=== PATIENT | male | born 1965 | race Caucasian/White ===

== ENCOUNTER 2016-12-19 19:00 | Emergency (ER) | payer BC, MEDICARE ==
[2016-12-19 19:13] VITALS: BP 112/79
[2016-12-19] MEDS ORDERED: HYDROmorphone 1 MG/ML Syringe IVPUSH ONE (19:22)
[2016-12-19] MEDS ORDERED: HYDROmorphone 1 MG/ML Syringe IM ONE (19:27)
[2016-12-19] MEDS ORDERED: Diazepam 5 MG Tab PO ONE (20:26)
[2016-12-19] MEDS ORDERED: Take Home: Acetaminophen/HYDROcodone 325-10 MG, 5 Tab Pack PO ONE (20:51)
--- NOTE | 2016-12-21 08:42 | ER ---
Date of Service: 12/19/2016 SUBJECTIVE: Adalberto presents to the emergency room with complaints of lumbar pain. The patient states that he fell out of the back of a truck and since that time has been experiencing discomfort to his lumbar spine. The patient has a history of degenerative disk disease and does undergo an epidural steroid injection for this. He states he does have chronic radiculopathy into the right lower extremity. He states that the radiculopathy is unchanged. He states that he is not experiencing any saddle anesthesia or urinary or fecal incontinence. PAST MEDICAL HISTORY: 1. Degenerative disk disease. 2. Spinal stenosis. 3. Anxiety. 4. Depression. 5. Dyslipidemia. MEDICATIONS: 1. Potassium chloride. 2. Aspirin. 3. Hydrochlorothiazide. 4. Prozac. 5. Alprazolam. 6. Protonix. 7. Zoloft. 8. Aleve. 9. Melatonin. 10.Tizanidine. 11.Lipitor. ALLERGIES: NKDA. REVIEW OF SYSTEMS: Denies any numbness or tingling in the distal portion of his lower extremities. No difficulties with urinary or fecal incontinence. Denies any fever or chills. Again, this is an acute injury. Denies any paresthesia to his lower extremities. PHYSICAL EXAMINATION: General: This is a 51-year-old male patient, who is in no acute distress. Vital Signs: Blood pressure is 112/79, pulse rate is 96, temperature is 36.6, respiratory rate 18, and O2 saturations 97%. Skin: Warm, pink, and dry. HEENT: Head is normocephalic, atraumatic. Eyes, PERRLA. Extraocular muscles are intact. Back: He does have some erythema to his upper lumbar spine. There is no obvious step-offs or deformity noted. Lungs: Clear to auscultation. Heart: Regular rate and rhythm. IMAGING: CT scan of the patient's lumbar spine was obtained. There is evidence of L1, L2, and L3 left transverse process fractures. No obvious central canal stenosis or other vertebral body injury. ASSESSMENT: Transverse process fracture of L1, 2, and 3. PLAN: The patient will be discharged. I did start him on [place] 10/325 with instructions to take 1 every 4 to 6 hours as needed for pain. I will have the patient followup in the clinic in the next 7 to 10 days. I did speak with Neurosurgery regarding this injury. The patient was given a prescription for an [place] back brace. Return to the emergency room if he develops any as paresthesia to his extremities, difficulties with walking, etc. All questions were answered. MWK: 12/21/2016 05:23:43 MODL: 12/21/2016 06:11:04 /[id number]
== END 2016-12-19 20:30 | disposition home or self-care (01) ==
LOC: VM.ED 19:00 → SUPCPDRO 19:00 → VM.ED 20:30
DX: S32.019A Unspecified fracture of first lumbar vertebra, initial encounter for closed fracture (principal); S32.029A Unspecified fracture of second lumbar vertebra, initial encounter for closed fracture; S32.039A Unspecified fracture of third lumbar vertebra, initial encounter for closed fracture; F41.9 Anxiety disorder, unspecified; F32.9 Major depressive disorder, single episode, unspecified; W19.XXXA Unspecified fall, initial encounter
CPT/HCPCS: 72131; 96372; 99284; A9270; J1170

== ENCOUNTER 2018-04-16 00:29 | Emergency (ER) | payer BC, MEDICARE ==
[2018-04-16 00:33] VITALS: BP 147/102
[2018-04-16] MEDS ORDERED: Take Home: Cephalexin 500 MG Cap, 4 Cap Pack PO ONE (01:18)
--- NOTE | 2018-04-16 01:57 | EDM.PDOC ---
ED HPI GENERAL MEDICAL PROBLEM - General Chief Complaint: Upper Extremity Injury/Pain Stated Complaint: post op shoulder redness Time Seen by Provider: 04/16/18 00:30 Source of Information: Reports: Patient, Family History Limitations: Reports: No Limitations - History of Present Illness INITIAL COMMENTS - FREE TEXT/NARRATIVE: Pt. presents to ER with increased swelling and erythema to R shoulder. He states that he had surgery on the shoulder approx. 1 week ago. Pt. states that he felt the was a change in the area this evening. She states that there was an area of localized edema to the anterior shoulder. Denies any fever or chills. Denies any new trauma to the area. He is participating in PT postoperatively, but states that it is not strenuous activity. Right Shoulder Pain Score (Numeric/FACES): 2 - Related Data Allergies Allergy/AdvReac Type Severity Reaction Status Date / Time No Known Allergies Allergy Verified 04/16/18 00:33 Home Meds: Home Meds ALPRAZolam [Xanax XR] 3 mg PO BEDTIME 12/25/13 [History] ALPRAZolam [Xanax] 0.25 mg PO Q12H PRN 12/25/13 [History] Naproxen Sodium [Aleve] 440 mg PO BID 12/25/13 [History] Pantoprazole Sodium [Protonix] 40 mg PO BID PRN 12/25/13 [History] atorvaSTATin [Lipitor] 20 mg PO BEDTIME 12/25/13 [History] hydroCHLOROthiazide [Hydrochlorothiazide] 1.5 tab PO DAILY 12/25/13 [History] Ondansetron [Zofran ODT] 4 mg PO Q6H PRN #6 tab.dis 03/01/14 [Rx] Potassium Chloride 20 meq PO BID 03/01/14 [History] Melatonin 25 mg PO BEDTIME 08/24/16 [History] Aspirin [Ecotrin] 81 mg PO DAILY 12/19/16 [History] Nortriptyline 40 mg PO BEDTIME 30 Days #60 cap 08/25/17 [Rx] FLUoxetine HCl [Fluoxetine HCl] 40 mg PO BEDTIME 30 Days #30 capsule 10/27/17 [ Rx] tiZANidine [Zanaflex] 8 mg PO Q8H PRN 30 Days #180 tab 01/11/18 [Rx] Past Medical History Cardiovascular History: Reports: Hypertension, [place] Genitourinary History: Reports: Other (See Below) Other Genitourinary History: History of several episodes of kidney stones. Musculoskeletal History: Reports: Back Pain, Chronic Neurological History: Reports: CVA, Seizure Psychiatric History: Reports: Anxiety, Depression - Past Surgical History Head Surgeries/Procedures: Reports: None Musculoskeletal Surgical History: Reports: Shoulder Surgery Social & Family History - Tobacco Use Smoking Status *Q: Never Smoker - Caffeine Use Caffeine Use: Reports: None Review of Systems - Review of Systems Review Of Systems: See Below Constitutional: Reports: No Symptoms Respiratory: Reports: No Symptoms Cardiovascular: Reports: No Symptoms GI/Abdominal: Reports: No Symptoms Musculoskeletal: Reports: Other (see hpi) Skin: Reports: No Symptoms ED EXAM, GENERAL - Physical Exam Exam: See Below Exam Limited By: No Limitations General Appearance: Alert, WD/WN, No Apparent Distress Neck: Normal Inspection, Supple, Non-Tender, Full Range of Motion Respiratory/Chest: No Respiratory Distress, Lungs Clear, Normal Breath Sounds, No Accessory Muscle Use, Chest Non-Tender Cardiovascular: Normal Peripheral Pulses, Regular Rate, Rhythm, No Edema, No Gallop, No JVD, No Murmur, No Rub Extremities: Normal Inspection, Normal Range of Motion, Non-Tender, Normal Capillary Refill, Other (The swelling and erythema apperently has decreased since coming to ER. He still complains of some diffuse superfical burning to the R shoulder. No discharge from the post op lacerations.) Course - Vital Signs Last Recorded V/S: Last Vital Signs Temp 36.8 C 04/16/18 00:30 Pulse 109 H 04/16/18 00:30 Resp 18 04/16/18 00:30 BP 147/102 H 04/16/18 00:30 Pulse Ox - Orders/Labs/Meds Meds: Medications Discontinued Medications Generic Name Dose Route Start Last Admin Trade Name Freq PRN Reason Stop Dose Admin Cephalexin 1 packet 04/16/18 01:18 04/16/18 01:22 Take Home: Cephalexin 500 Mg, 4 Cap Pack PO 04/16/18 01:19 1 packet ONETIME ONE Administration Departure - Departure Time of Disposition: 01:15 Disposition: Home, Self-Care 01 Condition: Good Clinical Impression: Post op infection - Discharge Information Instructions: Cellulitis, Adult Referrals: PCP,Unobtain [Primary Care Provider] - Forms: ED Department Discharge Additional Instructions: Keflex 500mg 4 times daily for 10 days Follow-up with surgeon as planned Return to ER if increased discomfort, fever, chills, or weakness. - Assessment/Plan Plan: Keflex 500mg 4 times daily for 10 days Follow-up with surgeon as planned Return to ER if increased discomfort, fever, chills, or weakness.
== END 2018-04-16 01:28 | disposition home or self-care (01) ==
LOC: VM.ED 00:29
DX: T81.4XXA Infection following a procedure, initial encounter (principal); I10 Essential (primary) hypertension; I25.2 Old myocardial infarction; Z79.899 Other long term (current) drug therapy
CPT/HCPCS: 99283; A9270

== ENCOUNTER 2018-06-14 08:36 | Day surgery (SDC) | payer BC, MEDICARE ==
[~2018-06-14 08:36] MED LIST: Lactated Ringers 1,000 ML IV SCH; Sodium Chloride 0.9% 10 ML Syringe FLUSH PRN
[2018-06-14] MEDS ORDERED: Bupivacaine 0.25%/EPINEPHrine 1:200,000 30 ML SDV ONE (10:28)
[2018-06-14] MEDS ORDERED: Acetaminophen 1,000 MG in Premix Bag 1 BAG IV ONE (10:41)
[2018-06-14] MEDS ORDERED: Midazolam 1 MG/ML 2 ML SDV ONE (11:34)
[2018-06-14] MEDS ORDERED: Propofol 200 MG/20 ML SDV ONE ×2 (11:34→11:50)
[2018-06-14] MEDS ORDERED: fentaNYL 100 MCG/2 ML SDV ONE (11:34)
[2018-06-14] MEDS ORDERED: Ondansetron 4 MG/2 ML SDV ONE (11:38)
[2018-06-14] MEDS ORDERED: Ketorolac 30 MG/ML SDV ONE (11:43)
[2018-06-14] MEDS ORDERED: Bupivacaine 0.25%/EPINEPHrine 1:200,000 30 ML SDV INFILT ONE ×2 (11:56)
[2018-06-14 13:00] VITALS: BP 127/67
--- NOTE | 2018-06-14 18:09 | OR ---
PREOPERATIVE DIAGNOSIS: External hemorrhoids, symptomatic. POSTOPERATIVE DIAGNOSIS: External hemorrhoids, symptomatic. PROCEDURE PROPOSED: Excision of external hemorrhoids x2. PROCEDURE DONE: Excision of external hemorrhoids x2. INDICATION: A 52-year-old gentleman who has some bothersome firm external hemorrhoids. They appeared to be almost more of a polypoid type lesion, 1 anterior and 1 posterior, and after he was seen in the office a few weeks ago, I felt that we should proceed to remove these in the operating room under sedation. TECHNIQUE: The patient was brought to the operative suite, given some MAC anesthesia per SAFETY RELIEF VALVE TECHNICIAN with propofol, and placed in the lithotomy position. The anal area was then sterilely prepped and draped. He had 2 external polypoid lesions, 1 posteriorly which was the largest measuring about 1.5 cm and one anteriorly measured about a 1 cm. Each area was locally anesthetized with 0.25% Marcaine with epinephrine. The largest polyp posteriorly was grasped with an Allis clamp and trimmed off with scissors. Hemostasis was obtained with cautery, and then the actual incision was closed with a running 3-0 chromic. Attention was then drawn to the anterior polyp which was removed in a similar fashion by grasping it and excising it with scissors, and it was then closed in a similar fashion with a running 2-0 chromic after obtaining hemostasis in the depths of the wound. Digital exam revealed good anal opening and sphincter tone, and the procedure was then terminated. The specimens were submitted for pathology. SCM: 06/14/2018 12:18:36 MODL: 06/14/2018 18:03:16 /[id number]
--- NOTE | 2018-06-21 09:40 | LETTER ---
06/21/2018 Marichuy Arvizu RE: MARICHUY HARO : 1965 Dear Mr. Arvizu: The anal tags removed recently by surgery came back showing that they were just non-worrisome anal tags with inflammation. I am pleased to give you this good report. If you have any further questions, feel free to call. Respectfully,
== END 2018-06-14 13:30 | disposition home or self-care (01) ==
LOC: VM.SDS 08:36
PROVIDERS: ATTEND Surgery
DX: K64.4 Residual hemorrhoidal skin tags (principal); I10 Essential (primary) hypertension; G47.33 Obstructive sleep apnea (adult) (pediatric); E78.00 Pure hypercholesterolemia, unspecified; F33.1 Major depressive disorder, recurrent, moderate; Z79.82 Long term (current) use of aspirin; Z79.899 Other long term (current) drug therapy
CPT/HCPCS: 88304; J0131; J1885; J2250; J2405; J2704; J3010; J7120

== ENCOUNTER 2020-07-07 15:20 | Emergency (ER) | payer BC, MEDICARE ==
[2020-07-07 16:04] LABS: CHLORIDE,CL 101 mmol/L (98-107); SODIUM,NA 138 mmol/L (136-145)
[2020-07-07 16:06] LABS: PTT,PARTIAL THROMBOPLSTIN TIME 25.4 SEC (25.6-32.8)
--- NOTE | 2020-07-07 16:13 | CT ---
[id number] CT/CT Head Stroke Protocol Exam: CT Head Stroke Protocol Clinical Data: STROKE COMPARISON: NO PREVIOUS SIMILAR EXAM IS AVAILABLE FINDINGS: There is no mass or mass effect There is no hemorrhage or hydrocephalus There are no extra axial fluid collections The aspect score is 10 There are no sites of abnormal attenuation There is no definite hyperdense middle cerebral artery sign The right middle cerebral artery appears denser than the left The patient is not symmetrically positioned The patient is presenting with expressive aphasia and a right side headache IMPRESSION: NO DEFINITE PLAIN CT ABNORMALITY CT ANGIOGRAPHY TO FOLLOW REPORT CALLED AT TIME OF EXAM Jeremi Khan MD 07/07/20 [id number] Thank you for allowing us to participate in the care of your patient.
[2020-07-07] MEDS: Iopamidol 612 MG/ML 100 ML Bottle IVPUSH ONE (16:20)
[2020-07-07] MEDS: diphenhydrAMINE 50 MG/ML SDV IVPUSH ONE (16:53)
[2020-07-07] MEDS: Lactated Ringers 1,000 ML IV ONE (16:53)
--- NOTE | 2020-07-07 16:54 | CT ---
[id number] CT/CTA Head Neck Exam: CTA Head Neck Clinical Data: NEUROLOGIC DEFICIT COMPARISON: CORRELATION IS MADE WITH THE EARLIER PLAIN CT BRAIN FINDINGS: No large vessel occlusion is seen There is no appreciable cervical carotid stenosis The vertebral basilar system is intact IMPRESSION: NO "LVO" LESION Jeremi Khan MD 07/07/20 [id number] Thank you for allowing us to participate in the care of your patient.
[2020-07-07] MEDS: Metoclopramide 10 MG/2 ML SDV IVPUSH ONE (16:55)
[2020-07-07] MEDS: Ketorolac 30 MG/ML SDV IVPUSH ONE (16:56)
--- NOTE | 2020-07-07 17:24 | EDM.PDOC ---
ED HPI GENERAL MEDICAL PROBLEM - General Chief Complaint: Neuro Symptoms/Deficits Stated Complaint: Headache speech changes. Time Seen by Provider: 07/07/20 15:20 Source of Information: Reports: Patient History Limitations: Reports: No Limitations - History of Present Illness INITIAL COMMENTS - FREE TEXT/NARRATIVE: Patient comes emergency department today from home with his with concerns of a headache and speech difficulties. This patient had a stroke about 10 years ago. In the past he has had a very similar episode about 5 years ago when he gets very anxious he has stuttering and difficulty talking and they think it is related to anxiety. Today just prior to 3 PM this patient got in a verbal argument with his son and they started arguing over multiple issues. He suddenly developed a right-sided headache chest pressure and he felt like it was difficult for him to speak. His noticed that he was stuttering and his speech was very different. He was brought to the emergency department. Upon arrival he complains of pain behind his right eye and pain throughout the right side of his tentorium. He is alert and appropriate. He moves all extremity str geri and equal to command. He denies any paresthesias of his upper or lower extremities. He denies any change in the functionality of his upper or lower extremities. He denies any recent falls or head trauma. He is not on any anticoagulant at this time. He does complain of some pressure in his chest that started shortly after the argument. No weakness dizziness lightheadedness. No cough or congestion. No fever no chills. No palpitations. No abdominal pain no nausea or vomiting. No hematuria dysuria or urinary frequency. No black or tarry stools. He has not taken anything for the headache prior to arrival. No COVID exposure no COVID symptoms - Related Data Allergies Allergy/AdvReac Type Severity Reaction Status Date / Time No Known Allergies Allergy Verified 07/07/20 18:55 Home Meds: Home Meds ALPRAZolam [Xanax] 0.5 mg PO Q12H PRN 12/25/13 [History] Naproxen Sodium [Aleve] 220 - 440 mg PO BID 12/25/13 [History] Pantoprazole Sodium [Protonix] 40 mg PO BID 12/25/13 [History] atorvaSTATin [Lipitor] 20 mg PO BEDTIME 12/25/13 [History] hydroCHLOROthiazide [Hydrochlorothiazide] 1.5 tab PO DAILY 12/25/13 [History] Potassium Chloride 20 meq PO BID 03/01/14 [History] Aspirin [Ecotrin] 81 mg PO DAILY 12/19/16 [History] ALPRAZolam [Xanax XR] 2 mg PO BEDTIME 09/30/18 [History] FLUoxetine HCl [Fluoxetine HCl] 60 mg PO BEDTIME 09/30/18 [History] traZODone 100 mg PO BEDTIME 12/09/18 [History] Ibuprofen 400 mg PO BID PRN 03/06/20 [History] tiZANidine [Zanaflex] 8 mg PO Q8H PRN 30 Days #180 tab 04/02/20 [Rx] Past Medical History Cardiovascular History: Reports: High Cholesterol, Hypertension, [place], Other (See Below) Other Cardiovascular History: unspecified chest pain Respiratory History: Reports: Sleep Apnea Gastrointestinal History: Reports: GERD Genitourinary History: Reports: Other (See Below) Other Genitourinary History: History of several episodes of kidney stones. Musculoskeletal History: Reports: Back Pain, Chronic Neurological History: Reports: CVA, Seizure Psychiatric History: Reports: Anxiety, Depression Social & Family History - Family History Cardiac: Reports: Cardiomyopathy Oncologic: Reports: Lung, Other (See Below) - Caffeine Use Caffeine Use: Reports: None - Living Situation & Occupation Living situation: Reports: , with Significant Other Occupation: Disabled (2 boys, 2 girls. good social network.) ED ROS GENERAL - Review of Systems Review Of Systems: Comprehensive ROS is negative, except as noted in HPI. ED EXAM, NEURO - Physical Exam Exam: See Below Exam Limited By: No Limitations General Appearance: Alert, WD/WN, No Apparent Distress Eye Exam: Bilateral Eye: EOMI, PERRL Ears: Normal External Exam, Normal Canal Nose: Normal Inspection, Normal Mucosa Throat/Mouth: Normal Inspection, Normal Lips, Normal Teeth, Normal Oropharynx, Normal Voice Head Exam: Atraumatic, Normocephalic Neck: Normal Inspection, Supple Respiratory/Chest: No Respiratory Distress, Lungs Clear, Normal Breath Sounds, No Accessory Muscle Use, Chest Non-Tender Cardiovascular: Normal Peripheral Pulses, Regular Rate, Rhythm, No Murmur GI/Abdominal: Normal Bowel Sounds, Soft, Non-Tender (Male) Exam: Deferred Rectal (Males) Exam: Deferred Neurological: Alert, Normal Mood/Affect, Normal Dorsiflexion, Normal Plantar Flexion, Normal Gait, Normal Reflexes, No Motor/Sensory Deficits (He has chronic chnage of sensation to his left lower extremity due to previous surgery. The rest of the sensation is normal. ), Oriented x 3, Other (NIH 1 for the speech. ). No: CN II-XII Intact (His speech is stuttering with only able to speak 2 or 3 words that is quite slurred but is able to be descurned. Otherwise normal Cranial nerves. ), Ataxia Back Exam: Normal Inspection Extremities: Normal Inspection, Normal Range of Motion, Non-Tender, No Pedal Edema, Normal Capillary Refill Psychiatric: Normal Affect, Normal Mood Skin Exam: Warm, Dry, Intact, Normal Color, No Rash EKG INTERPRETATION EKG Date: 07/07/20 Time: 15:30 Rhythm: NSR Rate (Beats/Min): 72 [place]: Normal P-Wave: Present QRS: Normal ST-T: Normal QT: Normal Course - Orders/Labs/Meds Orders: Active Orders 24 hr Category Date Time Status CTA Neck W & W/O Contrast [Ang Neck] [CT] Stat Exams 07/07/20 15:42 Ordered Labs: Laboratory Tests 07/07/20 07/07/20 07/07/20 Range/Units 15:33 15:33 15:33 WBC 9.3 (4.0-10.0) x10^3/uL RBC 4.96 (4.5-6.0) x10^6/uL Hgb 13.7 L D (14.0-18.0) g/dL Hct 41.2 (40.0-52.0) % MCV 83.1 D (78.0-93.0) fL MCH 27.6 (26.0-32.0) pg MCHC 33.3 (32.0-36.0) g/dL RDW Coeff of Yong 13.2 (10.0-15.0) % Plt Count 290 (130-400) x10^3/uL Neut % (Auto) 77.4 (50.0-80.0) % Lymph % (Auto) 14.7 L (25.0-50.0) % [place] % (Auto) 6.4 (2.0-11.0) % Eos % (Auto) 1.0 (0.0-4.0) % Baso % (Auto) 0.5 (0.2-1.2) % PT 10.6 (9.5-12.3) SEC INR 1.0 L (2.0-3.5) APTT 25.4 L (25.6-32.8) SEC Sodium 138 (136-145) mmol/L Potassium 4.0 (3.5-5.1) mmol/L Chloride 101 (98-107) mmol/L Carbon Dioxide 28 (21-32) mmol/L Anion Gap 13.0 (10-20) mmol/L BUN 13 (7-18) mg/dL Creatinine 1.1 (0.70-1.30) mg/dL Est Cr Clr Drug Dosing TNP Estimated GFR (MDRD) > 60 Glucose 128 H (74-106) mg/dL POC Glucose (74-106) mg/dL Calcium 8.8 (8.5-10.1) mg/dL Corrected Calcium 8.80 (8.5-10.1) mg/dL Total Bilirubin 0.5 (0.2-1.0) mg/dL AST 26 (15-37) U/L ALT 41 (16-63) U/L Alkaline Phosphatase 109 (46-116) U/L POC Troponin I (0.00-0.08) ng/mL Total Protein 8.0 (6.4-8.2) g/dL Albumin 4.0 (3.4-5.0) g/dL Globulin 4.0 Albumin/Globulin Ratio 1.00 Ethyl Alcohol (0-3) mg/dL 07/07/20 07/07/20 07/07/20 Range/Units 15:33 15:35 15:40 WBC (4.0-10.0) x10^3/uL RBC (4.5-6.0) x10^6/uL Hgb (14.0-18.0) g/dL Hct (40.0-52.0) % MCV (78.0-93.0) fL MCH (26.0-32.0) pg MCHC (32.0-36.0) g/dL RDW Coeff of Yong (10.0-15.0) % Plt Count (130-400) x10^3/uL Neut % (Auto) (50.0-80.0) % Lymph % (Auto) (25.0-50.0) % [place] % (Auto) (2.0-11.0) % Eos % (Auto) (0.0-4.0) % Baso % (Auto) (0.2-1.2) % PT (9.5-12.3) SEC INR (2.0-3.5) APTT (25.6-32.8) SEC Sodium (136-145) mmol/L Potassium (3.5-5.1) mmol/L Chloride (98-107) mmol/L Carbon Dioxide (21-32) mmol/L Anion Gap (10-20) mmol/L BUN (7-18) mg/dL Creatinine (0.70-1.30) mg/dL Est Cr Clr Drug Dosing Estimated GFR (MDRD) Glucose (74-106) mg/dL POC Glucose 124 H (74-106) mg/dL Calcium (8.5-10.1) mg/dL Corrected Calcium (8.5-10.1) mg/dL Total Bilirubin (0.2-1.0) mg/dL AST (15-37) U/L ALT (16-63) U/L Alkaline Phosphatase (46-116) U/L POC Troponin I 0.00 (0.00-0.08) ng/mL Total Protein (6.4-8.2) g/dL Albumin (3.4-5.0) g/dL Globulin Albumin/Globulin Ratio Ethyl Alcohol < 3 (0-3) mg/dL Meds: Medications Discontinued Medications Generic Name Dose Route Start Last Admin Trade Name Emeryq PRN Reason Stop Dose Admin Diphenhydramine HCl 25 mg 07/07/20 16:45 07/07/20 16:53 Benadryl IVPUSH 07/07/20 16:46 25 mg ONETIME ONE Administration Lactated Ringer's 1,000 mls @ 999 mls/hr 07/07/20 16:45 07/07/20 16:53 Ringers, Lactated IV 07/07/20 17:45 999 mls/hr ONETIME ONE Administration Iopamidol 100 ml 07/07/20 16:20 07/07/20 16:20 Isovue-300 (61%) IVPUSH 07/07/20 16:21 100 ml ONETIME ONE Administration Ketorolac Tromethamine 30 mg 07/07/20 16:45 07/07/20 16:56 Toradol IVPUSH 07/07/20 16:46 30 mg ONETIME ONE Administration Metoclopramide HCl 10 mg 07/07/20 16:45 07/07/20 16:55 Reglan IVPUSH 07/07/20 16:46 10 mg ONETIME ONE Administration - Re-Assessments/Exams Free Text/Narrative Re-Assessment/Exam: 07/07/20 On arrival a stroke code was activated and the stroke team was available shortly thereafter. An EKG was completed that showed a normal sinus rhythm without any ST elevation or depression when reviewed extemporaneously by myself. CT of the head per radiology shows no acute intracranial process. CTA of the head and neck per radiology shows no large vessel lesion. Approximately 35 minutes or so arrival the patient's speech is back to normal. It is clear and articulate. There is no stuttering. The rest of his lars rological exam is unremarkable. I am wondering if this is not some type of a complex migraine or neuropsych issue that he has had this in the past and he is resolving on his own. Despite this I called and spoke with Dr. Mehta the neurologist communications program manager at [place]. He had the CT available and agrees that this is unlikely to be a stroke. He recommends observation overnight to see if the symptoms return although if the patient wants to leave that is okay as well. This with the patient the normal CT and the CTA of the head. And that this is most likely a complex migraine or anxiety component. He has neurological symptoms is resolved although he still has a headache. He would like to go home and does not want to stay as he has had this before and agrees that this is most likely complex migraine. The patient was given a liter of LR bolus ketorolac 30 mg IV push Reglan 10 mg IV push and Benadryl 25 mg IV push with complete resolution of his symptoms for his migraine. He feels much better. Repeat neurological examination is unremarkable. We will discharge him home at this time with symptomatic management. If he has recurrence of these he should discuss with his primary care provider about the possibility of abortive type therapy for this complex migraine. Discharge directions as below are explained to the patient he is comfortable with this plan and his questions are answered. Departure - Departure Time of Disposition: 17:56 Disposition: Home, Self-Care 01 Clinical Impression: Atypical migraine - Discharge Information Instructions: Migraine Headache, [id number] Referrals: Joseph Gomes MD [Primary Care Provider] - Forms: ED Department Discharge Additional Instructions: Home rest the next few days. Lots of fluids. Tylenol and or Ibuprofen as needed for pain. Return to the ED if new or worsening symptoms. Follow up with PCP in 1 week for recheck and consider discussion about abortive therapy for complex migraines. - My Orders Last 24 Hours: My Active Orders 07/07/20 15:42 CTA Neck W & W/O Contrast [Ang Neck] [CT] Stat - Assessment/Plan Last 24 Hours: My Active Orders 07/07/20 15:42 CTA Neck W & W/O Contrast [Ang Neck] [CT] Stat
== END 2020-07-07 18:15 | disposition home or self-care (01) ==
LOC: VM.ED 15:20
DX: G43.909 Migraine, unspecified, not intractable, without status migrainosus (principal); I25.2 Old myocardial infarction; I10 Essential (primary) hypertension; E78.00 Pure hypercholesterolemia, unspecified; F41.9 Anxiety disorder, unspecified; F32.9 Major depressive disorder, single episode, unspecified; K21.9 Gastro-esophageal reflux disease without esophagitis; Z86.73 Personal history of transient ischemic attack (TIA), and cerebral infarction without residual deficits; Z79.899 Other long term (current) drug therapy
CPT/HCPCS: 36415; 70450; 70496; 80053; 80307; 82962; 84484; 85025; 85610; 85730; 93005; 93010; 96374; 96375; 99284; 99285-25; J1200; J1885; J2765; J7120; Q9967

== ENCOUNTER 2020-10-09 22:19 | Emergency (ER) | payer BC, MEDICARE ==
[2020-10-09] MEDS ORDERED: Ketorolac 30 MG/ML SDV IM ONE (22:39)
[2020-10-09 22:43] VITALS: BP 154/102; PULSE 102
--- NOTE | 2020-10-09 22:54 | EDM.PDOC ---
ED HPI GENERAL MEDICAL PROBLEM - General Chief Complaint: Back Pain or Injury Stated Complaint: Back spasms Time Seen by Provider: 10/09/20 22:30 Source of Information: Reports: Patient History Limitations: Reports: No Limitations - History of Present Illness INITIAL COMMENTS - FREE TEXT/NARRATIVE: Pt. presents to ER with complaints of R sided acute on chronic back pain. He is followed by Wilberto Pastrana in pain management for this. He states that the discomfort is chronic in nature, but has been worse for the past several days. He states that he was seen in the clinic for this and was worked up for kidney stone which he states was negative. He states that he last took his tizanidine and 2 ibuprofen this AM; he has not had any thing tonight. Pt. states that the patient is located on the R lumbar and thoracic area. He denies any new trauma. No recent injury. Denies any fever or chills. No chest pain or shortness of breath. He states that he has done physical therapy in the past and has a back exercise plan that usually works for him. Denies any saddle anesthesia. No incontinence. No numbness/tingling in extremities. He states that the discomfort is an intermittent, "spasm" type pain. Location: Reports: Back Quality: Reports: Throbbing Severity: Severe Treatments WHEEL ROLLER: Reports: Cold Therapy Other Treatments WHEEL ROLLER: Aleve, oral muscle relaxer right thoracic/lumbar Pain Score (Numeric/FACES): 10 - Related Data Allergies Allergy/AdvReac Type Severity Reaction Status Date / Time No Known Allergies Allergy Verified 07/07/20 18:55 Home Meds: Home Meds ALPRAZolam [Xanax] 0.5 mg PO Q12H PRN 12/25/13 [History] Naproxen Sodium [Aleve] 220 - 440 mg PO BID 12/25/13 [History] Pantoprazole Sodium [Protonix] 40 mg PO BID 12/25/13 [History] atorvaSTATin [Lipitor] 20 mg PO BEDTIME 12/25/13 [History] hydroCHLOROthiazide [Hydrochlorothiazide] 1.5 tab PO DAILY 12/25/13 [History] Potassium Chloride 20 meq PO BID 03/01/14 [History] Aspirin [Ecotrin] 81 mg PO DAILY 12/19/16 [History] ALPRAZolam [Xanax XR] 2 mg PO BEDTIME 09/30/18 [History] FLUoxetine HCl [Fluoxetine HCl] 60 mg PO BEDTIME 09/30/18 [History] traZODone 100 mg PO BEDTIME 12/09/18 [History] Ibuprofen 400 mg PO BID PRN 03/06/20 [History] tiZANidine [Zanaflex] 8 mg PO Q8H PRN 30 Days #180 tab 04/02/20 [Rx] Past Medical History Cardiovascular History: Reports: High Cholesterol, Hypertension, [place], Other (See Below) Other Cardiovascular History: unspecified chest pain Respiratory History: Reports: Sleep Apnea Gastrointestinal History: Reports: GERD Genitourinary History: Reports: Other (See Below) Other Genitourinary History: History of several episodes of kidney stones. Musculoskeletal History: Reports: Back Pain, Chronic Neurological History: Reports: CVA, Seizure, Other (See Below) Other Neuro History: complex migraine x 1 in 06/2020 Psychiatric History: Reports: Anxiety, Depression - Past Surgical History Head Surgeries/Procedures: Reports: None Musculoskeletal Surgical History: Reports: Shoulder Surgery Other Musculoskeletal Surgeries/Procedures:: Patient has had epidural injections many times and gets them on a regular basis. Social & Family History - Family History Cardiac: Reports: Cardiomyopathy Oncologic: Reports: Lung, Other (See Below) - Caffeine Use Caffeine Use: Reports: None - Living Situation & Occupation Living situation: Reports: , with Significant Other Occupation: Disabled (2 boys, 2 girls. good social network.) ED ROS GENERAL - Review of Systems Review Of Systems: See Below Constitutional: Reports: No Symptoms HEENT: Reports: No Symptoms Respiratory: Reports: No Symptoms Cardiovascular: Reports: No Symptoms Endocrine: Reports: No Symptoms GI/Abdominal: Reports: No Symptoms : Reports: No Symptoms Musculoskeletal: Reports: Back Pain Skin: Reports: No Symptoms Neurological: Reports: No Symptoms Psychiatric: Reports: No Symptoms Hematologic/Lymphatic: Reports: No Symptoms ED EXAM, GENERAL - Physical Exam Exam: See Below Exam Limited By: No Limitations General Appearance: Alert, WD/WN, No Apparent Distress Head: Atraumatic, Normocephalic Back Exam: Muscle Spasm, Paraspinal Tenderness, Other (diffuse spasm to R side of back from thoracic to lumbar region.) Extremities: Normal Inspection, Normal Range of Motion, No Pedal Edema, Normal Capillary Refill Neurological: Alert, Oriented, CN II-XII Intact, Normal Cognition, Normal Reflexes, No Motor/Sensory Deficits Psychiatric: Normal Affect, Normal Mood Skin Exam: Warm, Dry, Intact, Normal Color, No Rash Lymphatic: No Adenopathy Course - Vital Signs Last Recorded V/S: Last Vital Signs Temp 35.3 C L 10/09/20 22:20 Pulse 102 H 10/09/20 22:20 Resp 16 10/09/20 22:20 BP 154/102 H 10/09/20 22:20 Pulse Ox 96 10/09/20 22:20 - Orders/Labs/Meds Meds: Medications Discontinued Medications Generic Name Dose Route Start Last Admin Trade Name Ravinder PRN Reason Stop Dose Admin Diazepam 10 mg 10/09/20 22:38 Valium IM 10/09/20 22:39 ONETIME ONE Ketorolac Tromethamine 30 mg 10/09/20 22:39 Toradol IM 10/09/20 22:40 ONETIME ONE Departure - Departure Time of Disposition: 22:57 Disposition: Home, Self-Care 01 Clinical Impression: Chronic back pain - Discharge Information Instructions: Chronic Back Pain, Tbap-[id number] Referrals: Joseph Gomes MD [Primary Care Provider] - Forms: ED Department Discharge Additional Instructions: Ibuprofen 200mg 3 tabs every 6 hours Tylenol 1000mg every 6 hours Continue with tizanidine tomorrow for muscle spasm. Recheck in clinic tomorrow. Sepsis Event Note (ED) - Evaluation Sepsis Screening Result: No Definite Risk - Focused Exam Vital Signs: Vital Signs Temp Pulse Resp BP Pulse Ox 10/09/20 22:20 35.3 C L 102 H 16 154/102 H 96 - Problem List Review Problem List Initiated/Reviewed/Updated: Yes - Assessment/Plan Plan: Ibuprofen 200mg 3 tabs every 6 hours. Hold for tonight as you are getting toradol in ER. Tylenol 1000mg every 6 hours Continue with tizanidine tomorrow for muscle spasm. Hold alprazolam tonight, since you are getting valium in ER. Recheck in clinic tomorrow.
== END 2020-10-09 23:00 | disposition home or self-care (01) ==
LOC: VM.ED 22:19
DX: G89.29 Other chronic pain (principal); M54.5 Low back pain; M54.6 Pain in thoracic spine; E78.00 Pure hypercholesterolemia, unspecified; I10 Essential (primary) hypertension; I25.2 Old myocardial infarction; K21.9 Gastro-esophageal reflux disease without esophagitis; Z79.899 Other long term (current) drug therapy; Z79.82 Long term (current) use of aspirin
CPT/HCPCS: 96372; 99283; J1885; J3360